=== PATIENT | male | born 1935 | race Caucasian/White ===

== ENCOUNTER 2017-09-02 07:13 | Outpatient (CLI) | payer MEDICARE ==
[2017-09-02 08:13] LABS: Blood Urea Nitrogen 11 mg/dL (9-20)
[2017-09-02] MEDS ORDERED: NACL ONE (08:35)
--- NOTE | 2017-09-02 09:34 | Cat Scan Report ---
CTA HEAD INDICATION: Occlusion and stenosis of bilateral carotid arteries. COMPARISON: None similar at this institution. FINDINGS: CTA of the brain performed following IV contrast. Multiplanar reconstructions, including post processing angiographic reformations obtained. Patent, normal vertebrobasilar system with left vertebral artery slightly larger than the right. Patent mentasta of [place] as well. Right PCOM opacified. No hemodynamically significant stenosis or aneurysm identified. Normal sulci. Age-appropriate ventricles. Edentulous maxilla. Normal eye globes. Mild bilateral maxillary sinus mucosal thickening inferiorly. Mild right frontal, ethmoid and sphenoid sinus nasal thickening as well. Clear remainder imaged paranasal sinuses and mastoid air cells. Normal calvarium and skull. CONCLUSION: Normal CTA of the head with sinusitis noted, as described. Thank you for the opportunity to participate in this patient's care.
--- NOTE | 2017-09-02 14:12 | Cat Scan Report ---
FINAL REPORT EXAM: CT ANGIO NECK HISTORY: OCCLUSION AND STENOSIS OF MATTHEW CAROTID ARTERIES TECHNIQUE: CT angiography of the neck performed. IV contrast was administered. Axial images and coronal and sagittal reformatted images were obtained. 3D reformatted imaging also obtained. PRIORS: None. FINDINGS: Left side: There is plaque involving the distal common carotid artery, carotid bifurcation and proximal ICA. This is mostly soft plaque. Stenosis most notably involves the distal common carotid artery. Which appears very stenotic proximal to the bifurcation. Stenosis in this region is likely about 70-90 percent. Additionally, there is moderate stenosis involving the carotid bulb, estimated at 50-70 percent. There is stenosis involving the proximal ECA which is estimated at about 50-70 percent. Left vertebral artery is patent without stenosis or dissection. Right side: There is [id number] atherosclerotic plaque at the common carotid, carotid bifurcation and involving proximal ICA. This is mostly soft plaque. This causes mild narrowing of the common carotid artery and carotid bulb, stenosis less than 50 percent. The right vertebral artery is patent without stenosis or dissection. IMPRESSION: Significant stenosis involving left distal common carotid artery, likely greater than 70 percent. There is 50-70 percent stenosis of left carotid bulb/proximal ICA and proximal left ECA.. Mild narrowing of right distal common carotid artery and ICA, less than 50 percent.
== END 2017-09-02 07:14 | disposition home or self-care (01) ==
LOC: CT 07:13
PROVIDERS: ATTEND Surgery Vascular Surgery
DX: I65.23 Occlusion and stenosis of bilateral carotid arteries (principal); E08.59 Diabetes mellitus due to underlying condition with other circulatory complications; I10 Essential (primary) hypertension; K21.9 Gastro-esophageal reflux disease without esophagitis
CPT/HCPCS: 36415; 70496; 70498; 82565; 84520; Q9967

== ENCOUNTER 2018-10-13 09:02 | Emergency (ER) | payer MEDICARE ==
[2018-10-13 09:09] VITALS: BP 154/73
[2018-10-13] MEDS ORDERED: NORCO 5/325 PO ONE (10:48)
--- NOTE | 2018-10-13 10:54 | Emergency Department Report ---
ED Lower Extremity HPI - General Chief Complaint: Fall Stated Complaint: LEG PAIN Time Seen by Provider: 10/13/18 10:38 Source: patient, family, site interpreter Mode of arrival: Wheelchair Limitations: Language Barrier - History of Present Illness Initial Comments: 83-year-old male status post fall 1 week ago with pain to the left hip. States pain became worse last night, unable to sleep due to the pain. Reports radiation of pain down into the left foot with, associated paresthesias. Patient denies back pain. Patient states that he fell last week and landed directly onto his left buttock onto concrete. Complaint: hip injury -: week(s) (1) Injury: Hip: Left Type of Injury: blunt Severity: severe Improves With: immobilization Worsens With: weight bearing, movement, palpation Context: fall Associated Symptoms: tingling, able to partially bear weight - Related Data Home Medications Medication Instructions Recorded Confirmed Last Taken Aspirin [Lo-Dose Aspirin EC] 81 mg PO DAILY 09/15/17 09/22/17 09/21/17 09:00 glipiZIDE [Glipizide] 10 mg PO DAILY 09/15/17 09/22/17 09/20/17 09:00 metFORMIN [Glucophage] 500 mg PO QDAY 09/15/17 09/22/17 09/20/17 09:00 Previous Rx's Medication Instructions Recorded Last Taken Type HYDROcodone/APAP 5-325 [[place] 1 each PO Q4HR PRN #20 tablet 09/23/17 Unknown Rx 5/325] Clopidogrel [Plavix] 75 mg PO QDAY #30 tablet 09/24/17 Unknown Rx Naproxen [Naprosyn] 500 mg PO BID #20 tablet 10/13/18 Unknown Rx methOCARBAMOL [Robaxin TAB] 500 mg PO Q8HR PRN #20 tablet 10/13/18 Unknown Rx traMADol [Ultram] 50 mg PO Q6HR PRN #7 tablet 10/13/18 Unknown Rx Allergies Allergy/AdvReac Type Severity Reaction Status Date / Time No Known Allergies Allergy Verified 10/13/18 09:04 ED Review of Systems ROS: Stated complaint: LEG PAIN Other details as noted in HPI Comment: All other systems reviewed and negative Musculoskeletal: as per HPI, arthralgia Neurological: paresthesias ED Past Medical Hx - Past Medical History Hx Hypertension: No Hx Diabetes: Yes Hx Renal Disease: No Hx Arthritis: Yes - Social History Smoking Status: Never Smoker Substance Use Type: None - Medications Home Medications: Home Medications Medication Instructions Recorded Confirmed Last Taken Type Aspirin [Lo-Dose Aspirin EC] 81 mg PO DAILY 09/15/17 09/22/17 09/21/17 09:00 History glipiZIDE [Glipizide] 10 mg PO DAILY 09/15/17 09/22/17 09/20/17 09:00 History metFORMIN [Glucophage] 500 mg PO QDAY 09/15/17 09/22/17 09/20/17 09:00 History HYDROcodone/APAP 5-325 [[place] 1 each PO Q4HR PRN #20 tablet 09/23/17 Unknown Rx 5/325] Clopidogrel [Plavix] 75 mg PO QDAY #30 tablet 09/24/17 Unknown Rx Naproxen [Naprosyn] 500 mg PO BID #20 tablet 10/13/18 Unknown Rx methOCARBAMOL [Robaxin TAB] 500 mg PO Q8HR PRN #20 tablet 10/13/18 Unknown Rx traMADol [Ultram] 50 mg PO Q6HR PRN #7 tablet 10/13/18 Unknown Rx ED Physical Exam - General Limitations: Language Barrier General appearance: alert, in no apparent distress - Head Head exam: Present: atraumatic, normocephalic - Eye Eye exam: Present: normal appearance - ENT ENT exam: Present: mucous membranes moist - Neck Neck exam: Present: normal inspection - Respiratory Respiratory exam: Present: normal lung sounds bilaterally. Absent: respiratory distress - Cardiovascular Cardiovascular Exam: Present: regular rate, normal rhythm - Extremities Exam Extremities exam: Present: other (tenderness to left sciatic notch; decreased ROM with flexion/ extension of left hip; able to lift leg completely off of the stretcher approx 12 inches; positive straight leg raise) - Neurological Exam Neurological exam: Present: alert, oriented X3. Absent: motor sensory deficit (strength 5/5, sensation grossly intact in left leg) - Psychiatric Psychiatric exam: Present: normal affect, normal mood - Skin Skin exam: Present: warm, dry, intact, normal color ED Course Vital Signs 10/13/18 10/13/18 09:07 10:54 Temperature 98.1 F Pulse Rate 86 Respiratory 16 18 Rate Blood Pressure 154/73 O2 Sat by Pulse 100 Oximetry Critical care attestation.: If time is entered above; I have spent that time in minutes in the direct care of this critically ill patient, excluding procedure time. ED Disposition Clinical Impression: Contusion of left hip, Sciatica of left side Disposition: TO HOME OR SELFCARE Is pt being admited?: No Condition: Stable Instructions: Sciatica (ED), Contusion in Adults (ED) Prescriptions: Naproxen [Naprosyn] 500 mg PO BID #20 tablet methOCARBAMOL [Robaxin TAB] 500 mg PO Q8HR PRN #20 tablet PRN Reason: Muscle Spasm traMADol [Ultram] 50 mg PO Q6HR PRN #7 tablet PRN Reason: Pain Referrals: MICHELLE ANGEL MD [Primary Care Provider] - 3-5 Days GRAY JORDAN MD [Staff Physician] - 3-5 Days Time of Disposition: 12:31 Print Language: KHMER
--- NOTE | 2018-10-13 11:56 | Cat Scan Report ---
CT pelvis without contrast: Fall, left hip pain. Transverse images are obtained through the pelvis with coronal and sagittal reformatted images. Degenerative apophyseal joint changes are noted at the lower 2 levels. There may be slight demineralization of the bones but consistent with advanced age. There are no fractures and no displacement identified. Mural calcification is identified in the arterial structures. No soft tissue findings otherwise noted. Impression: No fractures and no acute findings.
== END 2018-10-13 13:14 | disposition home or self-care (01) ==
LOC: ED 09:02
DX: S70.02XA Contusion of left hip, initial encounter (principal); M54.32 Sciatica, left side; E11.9 Type 2 diabetes mellitus without complications; M19.90 Unspecified osteoarthritis, unspecified site; Z79.82 Long term (current) use of aspirin; W18.30XA Fall on same level, unspecified, initial encounter; Y93.89 Activity, other specified; Y92.488 Other paved roadways as the place of occurrence of the external cause; Y99.8 Other external cause status
CPT/HCPCS: 72192; 99283